=== PATIENT | male | born 1940 | race Caucasian/White ===

== ENCOUNTER 2019-12-12 09:45 | Day surgery (SDC) | payer MEDICARE ==
[~2019-12-12] VITALS: Ht 177.8 cm; Wt 77.8 kg
[~2019-12-12 09:45] MED LIST: BUPIVACAINE/PF 0.5% ONE; LIDOCAINE 1%, 20ML ONE
[2019-12-12 10:27] VITALS: BP 169/91
[2019-12-12] MEDS ORDERED: PRED10TA14 PO (10:35)
[2019-12-12] MEDS ORDERED: GLUC1TAB55 PO (10:35)
[2019-12-12] MEDS ORDERED: METO-99 PO (10:35)
[2019-12-12] MEDS ORDERED: FINA5TAB4 PO (10:35)
[2019-12-12] MEDS ORDERED: HYDR25TA6 PO (10:35)
[2019-12-12] MEDS ORDERED: LISI40TA PO (10:35)
[2019-12-12] MEDS ORDERED: MULT-658 PO (10:35)
[2019-12-12] MEDS ORDERED: TAMS-11 PO (10:35)
[2019-12-12] MEDS ORDERED: OMEP-110 PO (10:35)
[2019-12-12] MEDS ORDERED: BENLYSTA INJ (10:35)
[2019-12-12] MEDS ORDERED: HYDR-3342 PO (10:35)
[2019-12-12] MEDS ORDERED: ASPI-496 PO (10:35)
[2019-12-12] MEDS ORDERED: AMLO10TA8 PO (10:35)
[2019-12-12] MEDS ORDERED: FENTANYL PF 250 MCG/5ML ONE (10:57)
[2019-12-12] MEDS ORDERED: CEFAZOLIN 1,000 MG ONE ×2 (10:58)
[2019-12-12] MEDS ORDERED: SODIUM CHLORIDE 0.9% PF 10ML ONE (10:58)
[2019-12-12] MEDS ORDERED: PROPOFOL 10 MG/ML, 20ML ONE (10:58)
[2019-12-12] MEDS ORDERED: LACTATED RINGERS 1,000 ML IV SCH (11:04)
[2019-12-12] MEDS ORDERED: NEOSTIGMINE 1 MG/ML, 10ML ONE (12:23)
[2019-12-12] MEDS ORDERED: GLYCOPYRROLATE 0.2MG/1ML, 5ML ONE (12:23)
[2019-12-12] MEDS ORDERED: ROCURONIUM 10MG/ML,5ML ONE (12:23)
[2019-12-12] MEDS ORDERED: MEPERIDINE/PF 25MG/ML,1ML IVPush PRN (12:30)
[2019-12-12] MEDS ORDERED: ONDANSETRON 2MG/ML, 2ML IV PRN (12:30)
[2019-12-12] MEDS ORDERED: LABETALOL 5MG/ML, 20ML IV PRN (12:30)
[2019-12-12] MEDS ORDERED: MORPHINE SULFATE 4 MG/ML, 1ML IVPush PRN (12:30)
[2019-12-12] MEDS ORDERED: OXYcodone 5 MG/5 ML ORAL.SOL UDC PO PRN (12:30)
[2019-12-12] MEDS ORDERED: hydrALAzine 20 MG/ML, 1ML IV PRN (12:30)
[2019-12-12] MEDS ORDERED: FENTANYL PF 100 MCG/2ML ONE (13:49)
[2019-12-12] MEDS: FENTANYL PF 100 MCG/2ML IV PRN ×2 (13:50→13:55)
[2019-12-12] MEDS ORDERED: OXYcodone 5 MG/5 ML ORAL.SOL UDC ONE (13:50)
[2019-12-12] MEDS: HYDROmorphone 1 MG/ML, 1ML INJ IVPush PRN ×2 (14:05→14:10)
[2019-12-12] MEDS ORDERED: HYDROmorphone 1 MG/ML, 1ML INJ ONE (14:06)
== END 2019-12-12 16:30 | disposition home or self-care (01) ==
LOC: OUT 09:45
PROVIDERS: ATTEND Orthopaedic Surgery
DX: S62.231A Other displaced fracture of base of first metacarpal bone, right hand, initial encounter for closed fracture (principal); I10 Essential (primary) hypertension; M06.9 Rheumatoid arthritis, unspecified; K21.9 Gastro-esophageal reflux disease without esophagitis; M19.90 Unspecified osteoarthritis, unspecified site; M32.9 Systemic lupus erythematosus, unspecified; N40.0 Benign prostatic hyperplasia without lower urinary tract symptoms; Z79.82 Long term (current) use of aspirin; Z79.899 Other long term (current) drug therapy; Z95.0 Presence of cardiac pacemaker; Z82.61 Family history of arthritis; W11.XXXA Fall on and from ladder, initial encounter; Y93.89 Activity, other specified; Y92.098 Other place in other non-institutional residence as the place of occurrence of the external cause; Y99.8 Other external cause status
CPT/HCPCS: 26665; 73130; 93005; C1713; J0690; J1170; J2405; J2704; J2710; J3010; J7120; 76000